=== PATIENT | female | born 1965 | race Caucasian/White ===

== ENCOUNTER → 2023-05-08 | Outpatient (CLI) | payer OTHER ==
--- NOTE | 2023-05-21 13:27 | MM ---
Reason for Exam: Screening (asymptomatic). Last mammogram was performed 1 year(s) and 5 month(s) ago. Patient History: Menarche at age 13. Postmenopausal. 2005, Bilateral Reduction. 1984, Bilateral Reduction. 2008, US breast needle core addl LT - 2 on the Left side. Maternal aunt had breast cancer. Maternal cousin had breast cancer under age 50. Risk Values: Laureen 5 year model risk: 1.1%. NCI Lifetime model risk: 6.6%. Prior Study Comparison: 12/06/2021 Bilateral Screening Mammogram, [facility]. Tissue Density: The breast tissue is heterogeneously dense. This may lower the sensitivity of mammography. Findings: Analyzed By CAD. Pattern appears stable. No significant interval change is evident. Core marker is within the right breast. There are some stable appearing calcifications in the posterior right breast No suspicious groups of microcalcifications, spiculated or lobular masses, architectural distortion or other secondary signs of malignancy are mammographically apparent. Overall Assessment: Benign, BI-RAD 2 Management: Screening Mammogram of both breasts in 1 year. A negative mammogram report should not preclude additional follow up of suspicious palpable abnormalities. Patient should continue monthly self breast exam. A clinical breast exam by your physician is recommended on an annual basis and results should be correlated with mammographic findings. Electronically signed and approved by: Rivas Ontiveros D.O. Radiologis
== END | disposition home or self-care (01) ==
LOC: RADMAMWWP 11:57
PROVIDERS: ATTEND Obstetrics & Gynecology
DX: Z12.31 Encounter for screening mammogram for malignant neoplasm of breast (principal); Z78.0 Asymptomatic menopausal state; Z80.3 Family history of malignant neoplasm of breast
CPT/HCPCS: 77063; 77067

== ENCOUNTER → 2023-05-08 | Outpatient (CLI) | payer OTHER ==
--- NOTE | 2023-05-08 13:34 | CTL ---
EXAMINATION TYPE: CT Low Dose Lung DATE OF EXAM ORDERED: 05/08/2023 HISTORY: . Lung cancer screening CT DLP: 88.[address] CTDI: 2.3 mGy Automated exposure control for dose reduction was used. SCREENING VISIT: COMPARISON: None TECHNIQUE: Low dose computed tomography scan was performed through the chest at 1 mm thick sections a nd reconstructed images in multiple planes at 1 mm and [address] DIAGNOSTIC QUALITY: Satisfactory FINDINGS: There is a 3 mm subpleural nodule right upper lobe axial image 51 There is a right upper lobe nodule axial image 78 measuring millimeters There is a 2 mm subpleural nodule right lower lobe axial image 122. There is a 3 mm left lower lobe archie-fissural nodule on image 93 There are additional areas of groundglass subsegmental consolidation most likely atelectasis The airways are patent. No significant changes of bronchiectasis. No consolidative pneumonia. No pleu ral effusion or pneumothorax. No interstitial edema. Trace pericardial fluid likely physiologic. Aorta normal caliber with mild atherosclerotic changes. T here is no significant coronary artery calcium sedation. Heart is enlarged. Small hiatal hernia. No p athologic adenopathy within the mediastinum or hilum. Hypertrophic and degenerative changes spine and calcification of the right breast is seen is asymmetr ic breast tissue. IMPRESSION: 1. Multiple sub-5 mm pulmonary nodules too small to characterize, but have a benign appearance. 2. Asymmetric right-sided breast tissue recommend follow-up mammogram. CT LUNG RAD AND CT CHEST RECOMMENDATION: Lung-Rad 2 Benign Appearance or Behavior: Continue annual sc reening with LDCT in 12 months.
== END | disposition home or self-care (01) ==
LOC: RADCTMAIN 12:05
PROVIDERS: ATTEND Family Medicine
DX: Z12.2 Encounter for screening for malignant neoplasm of respiratory organs (principal); N64.89 Other specified disorders of breast; R91.8 Other nonspecific abnormal finding of lung field; Z87.891 Personal history of nicotine dependence
CPT/HCPCS: 71271

== ENCOUNTER → 2024-02-06 | Outpatient (CLI) | payer OTHER ==
--- NOTE | 2024-02-06 23:40 | MR ---
EXAMINATION TYPE: MR lumbar spine wo con DATE OF EXAM: 02/06/2024 COMPARISON: NONE HISTORY: Bilateral foot pain. Vertebral genic low back pain. TECHNIQUE: Multiplanar, multisequence imaging of the lumbar spine is performed without IV contrast. FINDINGS: Sagittal images of the lumbar spine show vertebral body heights and alignment to appear sat isfactory. Multilevel disc desiccation with sparing of the L5-S1 level. Moderate to advanced disc bas e narrowing with heterogeneous Modic type II endplate changes at L4-L5 level. Roaf-ig-gvawqdjq disc s pace narrowing at L2-L3 and L3-L4 levels. The conus medullaris is normal in position and signal endin g at mid L1 level. Mild to moderate disc space narrowing with heterogeneous reticular endplate change s anteriorly at T11-T12 level.. Axial images at T12-L1 level shows mild broad-based disc bulge mildly effaces the anterior thecal sac . Patent bilateral neural foramina. Axial images at L1-L2 level appear within normal limits. Axial images at L2-L3 level mild broad disc bulge mildly effaces the anterior thecal sac along with m ild to moderate facet arthropathy and ligamentous flavum hypertrophy effacing the right lateral theca l sac. There is mild bilateral neural foraminal narrowing seen. Axial images at L3-L4 level show spondylolisthesis with mild/moderate facet arthropathy and ligament flavum hypertrophy effacing the posterolateral thecal sac. There is mild to moderate broad disc bulge mildly effacing the anterior thecal sac. There is mild bilateral neural foraminal narrowing seen. Axial images at L4-L5 level show moderate facet arthropathy bilaterally. There is moderate broad disc bulge. There is moderate left greater than right bilateral inferior neural foraminal narrowing. Axial images at L5-S1 level shows mild facet arthropathy bilaterally. Spinal canal is preserved. Bila teral neural foramen are patent. Paraspinal muscle bulk is preserved. IMPRESSION: Multilevel degenerative changes in the lumbar spine as detailed above.
== END | disposition home or self-care (01) ==
LOC: RADMRIMAIN 16:29
PROVIDERS: ATTEND Physical Medicine & Rehabilitation
DX: M47.816 Spondylosis without myelopathy or radiculopathy, lumbar region (principal); M41.26 Other idiopathic scoliosis, lumbar region
CPT/HCPCS: 72148

== ENCOUNTER 2024-04-07 07:00 | Day surgery (SDC) | payer OTHER ==
[~2024-04-07 07:00] MED LIST: LACTATED RINGERS 1,000 ML BAG ONE; LIDOCAINE 1% INJ 10MG/ML (20 ML MDV) ONE; PROPOFOL 10 MG/ML 20 ML VIAL IV ONE
--- NOTE | 2024-04-29 11:45 | P.PCN ---
Date of Procedure: 04/07/24 Procedure(s) Performed: This is an addendum to the procedure that was performed on 04/07/2024 Procedure performed EGD with biopsy and colonoscopy. Procedure. The upper endoscopy was advanced all the way into the duodenum. She was noted to have mild antral gastritis and biopsies were done from the antrum to evaluate for H. pylori infection. Colonoscopy was advanced all the way into the cecum without any difficulty and the patient tolerated the procedure well.
== END 2024-04-07 08:08 | disposition home or self-care (01) ==
LOC: ORWHC2ENDO 07:00
PROVIDERS: ATTEND Internal Medicine Gastroenterology
DX: K29.50 Unspecified chronic gastritis without bleeding (principal); I10 Essential (primary) hypertension; Z79.899 Other long term (current) drug therapy
CPT/HCPCS: 43239; 45378; 88305

== ENCOUNTER → 2024-05-18 | Outpatient (CLI) | payer OTHER ==
--- NOTE | 2024-05-19 23:28 | BD ---
EXAMINATION TYPE: Axial Bone Density DATE OF EXAM: 05/18/2024 CLINICAL HISTORY: 59 years old Female. ICD-10 CODE: M85.89 OTH DISRD OF BONE DENSITY AND STRUCTURE, MU Height: 5 ft 3 in Weight: 189 FRAX RISK QUESTIONS: Alcohol (3 or more units per day): no Family History (Parent hip fracture): no Glucocorticoids (More than 3mos): no (Ex: prednisone, prednisolone, methylprednisolone, dexamethasone, and hydrocortisone). History of Fracture in Adulthood: no Secondary Osteoporosis: 1. Type 1 Diabetes: no 2. Hyperthyroidism: no 3. Menopause before 45: no 4. Malnutrition: no 5. Chronic liver disease: no Rheumatoid Arthritis: no Current Tobacco Use: no RISK FACTORS HISTORY OF: Surgery to Spine/Hip(right/left)/Wrist (right/left): no MEDICATIONS: Thyroid Medications: no Osteoporosis Medications: no EXAM MEASUREMENTS: Bone mineral densitometry was performed using the hurleypalmerflatt System. Bone mineral density as measured about the Lumbar spine is: ----- L1-L4(G/cm2): 1.215 T Score Values are as follows: ----- L1: -0.6 ----- L2: -0.3 ----- L3: 0.7 ----- L4: 0.7 ----- L1-L4: 0.3 Z Score Values are as follows: ----- L1: -0.2 ----- L2: 0.2 ----- L3: 1.2 ----- L4: 1.2 ----- L1-L4: 0.7 baseline Bone mineral density about the R hip (g/cm2): 1.086 Bone mineral density about the L hip (g/cm2): 1.027 T Score values are as follows: -----R Neck: 0.3 -----L Neck: -0.1 -----R Total: 0.3 -----L Total: 0.2 Z Score values are as follows: -----R Neck: 1.1 -----L Neck: 0.7 -----R Total: 0.7 -----L Total: 0.6 baseline FRAX%s: The graph provided illustrates a 5.7 % chance for a major osteoporotic fx and a 0.1 % chance for the hips probability for fx in 10 years time. IMPRESSION: Normal (Values between +1 and -1 indicate normal bone mass). Consider repeating this study in 5 year s or sooner if there is some new clinical indication. NOTE: T-SCORE=SD OF THE YOUNG ADULT MEAN. [facility], , 05/19/2024 11:26 PM
== END | disposition home or self-care (01) ==
LOC: RADBDWWP 07:24
PROVIDERS: ATTEND Internal Medicine
DX: M85.89 Other specified disorders of bone density and structure, multiple sites (principal)
CPT/HCPCS: 77080

== ENCOUNTER → 2024-06-16 | Outpatient (CLI) | payer OTHER ==
--- NOTE | 2024-06-16 11:56 | CT ---
EXAMINATION TYPE: CT chest wo con CT DLP: 264.8 mGycm, Automated exposure control for dose reduction was used. DATE OF EXAM: 06/16/2024 11:10 AM COMPARISON: CT low-dose lung 05/08/2023. CLINICAL INDICATION:Female, 59 years old with history of R91.1 pulmonary nodule; PHH, pulmonary nodul e TECHNIQUE: Multiple axial images were obtained through the chest without IV contrast. Lack of IV or o ral contrast limits evaluation of solid and hollow organ viscera. . Coronal and sagittal reformats re viewed. FINDINGS: LUNGS/ PLEURA: No pleural effusion, pneumothorax, or focal consolidation. Intrafissural lymph node al vicenta the right minor fissure. Stable left lower lobe 4.5 mm nodule along the left major fissure (seri es 4, image 39). Stable pleural-based right upper lobe 2 mm pulmonary nodule (series 4, image 23). No new or enlarging pulmonary nodules. AIRWAY: Patent and unremarkable.. HEART: Size within normal limits. No pericardial effusion. MEDIASTINUM: No gross evidence of adenopathy. VASCULATURE: No aortic aneurysm. MUSCULOSKELETAL: No acute osseous abnormalities. Mild multilevel degenerative disc disease. SOFT TISSUES/LYMPH NODES: Similar asymmetric right breast tissue compared to left. LOWER NECK: No significant findings. UPPER ABDOMEN: No significant findings. IMPRESSION: Stable pulmonary nodules. No new or enlarging pulmonary nodules. Follow-up CT low-dose lung in one ye ar is recommended. [facility], , 06/16/2024 11:53 AM
== END ==
LOC: RADCTMAIN 10:46
PROVIDERS: ATTEND Internal Medicine
CPT/HCPCS: 71250

== ENCOUNTER → 2024-06-16 | Outpatient (CLI) | payer OTHER ==
--- NOTE | 2024-06-16 11:50 | MM ---
Reason for Exam: Screening (asymptomatic). Last mammogram was performed 1 year(s) and 1 month(s) ago. Patient History: Menarche at age 13. Patient has no children. Postmenopausal. 2005, Bilateral Reduction. 1984, Bilateral Reduction. 2008, US breast needle core addl LT - 2 on the Left side. Maternal aunt had breast cancer. Maternal cousin had breast cancer under age 50. Risk Values: Laureen 5 year model risk: 1.8%. NCI Lifetime model risk: 9.8%. Prior Study Comparison: 12/06/2021 Bilateral Screening Mammogram, [facility]. 05/08/2023 Bilateral MG 3D screening mammo w/cad, [facility]. Tissue Density: There are scattered areas of fibroglandular density. Findings: Analyzed By CAD. Right breast biopsy clip. Right breast: There is no suspicious group of microcalcifications or new suspicious mass. Left breast: There is no suspicious group of microcalcifications or new suspicious mass. Overall Assessment: Benign, BI-RAD 2 Management: Screening Mammogram of both breasts in [address] [facility] will attempt to contact patient to return for supplemental views and ultrasound if indicated. Patient should continue monthly self-breast exams. A clinical breast exam by your physician is recommended on an annual basis. This exam should not preclude additional follow-up of suspicious palpable abnormalities. Note on Laureen scores and lifetime risk: 1. A Laureen score greater than 3% is considered moderate risk. If this is the case, consider specialist referral to assess eligibility for a risk reducing agent. 2. If overall lifetime risk for the development of breast cancer is 20% or higher, the patient may qualify for future screening with alternating mammogram and breast MRI. [facility], , 06/16/2024 11:44 AM. Electronically signed and approved by: Gary Smith DO
== END | disposition home or self-care (01) ==
LOC: RADMAMWWP 10:06
PROVIDERS: ATTEND Obstetrics & Gynecology
CPT/HCPCS: 77063; 77067

== ENCOUNTER 2024-07-17 05:34 | Day surgery (SDC) | payer OTHER ==
[2024-07-14 14:19] VITALS: BMI 29.2
[2024-07-17] MEDS ORDERED: SCOPOLAMINE 1 MG/72 HR PATCH TRANSDERM ONE (06:34)
[2024-07-17] MEDS: IV FLUID CONTINUATION 1,000 ML IV ONE (06:45)
[2024-07-17 06:47] LABS: Glucose,Whole Blood 84 mg/dL (70-110)
[2024-07-17] MEDS: ONDANSETRON 4 MG/2 ML VIAL IVP ONE (06:53)
[2024-07-17] MEDS: LACTATED RINGERS 1,000 ML IV SCH (06:53)
[2024-07-17] MEDS: DEXAMETHASONE SOD PHOSPHATE 4 MG/ML 1 ML VIAL IV ONE (06:53)
[2024-07-17] MEDS: MIDAZOLAM 2 MG/2 ML VIAL IV PRN (06:54)
[2024-07-17 06:57] LABS: Basophils # (A) 0.1 k/uL (0-0.2); Basophils % (A) 1 %; Eosinophils # (A) 0.3 k/uL (0-0.7); Eosinophils % (A) 4 %; HCT 38.3 % (34.0-46.0); HGB 12.5 gm/dL (11.4-16.0); Lymphocytes # (A) 2.5 k/uL (1.0-4.8); Lymphocytes % (A) 38 %; MCH 29.3 pg (25.0-35.0); MCHC 32.5 g/dL (31.0-37.0); Mean Platelet Volume 7.3; Monocytes # (A) 0.4 k/uL (0-1.0); Monocytes % (A) 5 %; Neutrophils # (A) 3.4 k/uL (1.3-7.7); Neutrophils % (A) 50 %; Platelet Count 367 k/uL (150-450); RBC 4.26 m/uL (3.80-5.40); RDW 12.4 % (11.5-15.5); WBC 6.7 k/uL (3.8-10.6)
[2024-07-17] MEDS ORDERED: HYDROmorphone 0.5 MG/0.5 ML SYRINGE IVP PRN (07:00)
[2024-07-17] MEDS ORDERED: PROPOFOL 10 MG/ML 20 ML VIAL IV ONE (07:25)
[2024-07-17] MEDS ORDERED: LIDOCAINE 1% INJ 10MG/ML (20 ML MDV) ONE (07:25)
[2024-07-17] MEDS ORDERED: ROPIVACAINE 5 MG/ML 30 ML VIAL ONE (07:25)
[2024-07-17] MEDS ORDERED: MIDAZOLAM 2 MG/2 ML VIAL ONE (07:25)
[2024-07-17] MEDS ORDERED: fentaNYL (PF) 50 MCG/ML 2 ML AMP ONE (07:25)
[2024-07-17] MEDS ORDERED: ePHEDrine 50 MG/ML 1 ML VIAL ONE (07:25)
[2024-07-17] MEDS ORDERED: DEXAMETHASONE SOD PHOSPHATE 4 MG/ML 1 ML VIAL ONE (07:25)
[2024-07-17] MEDS: BUPIVACAINE (PF) 0.25% 30 ML VIAL SQ ONE ×2 (07:43)
[2024-07-17 07:47] LABS: African American GFR (CKD) >90 (>60 ml/min/1.73 sqM); Anion Gap 7 mmol/L; Blood Urea Nitrogen 14 mg/dL (7-17); Calcium 9.3 mg/dL (8.4-10.2); Carbon Dioxide 28 mmol/L (22-30); Chloride 104 mmol/L (98-107); Glucose 87 mg/dL (74-99); Non-African American GFR(CKD) 85 (>60 ml/min/1.73 sqM); Potassium 3.6 mmol/L (3.5-5.1); Sodium 139 mmol/L (137-145)
--- NOTE | 2024-07-17 07:47 | P.ANPRN ---
Procedure Note - Anesthesia - Nerve Block Performed Right Popliteal Single Time Out Performed: Yes Date of Procedure: 07/17/24 Procedure Start Time: 06:54 Procedure Stop Time: 06:59 Location of Patient: PreOp Indication: Acute Post-Operative Pain, Analgesia, Requested by Surgeon Sedation Type: Sedate with meaningful contact maintained Preparation: Sterile Prep Position: Left Lateral Catheter: None Needle Types: Pajunk Needle Gauge: 21 Ultrasound used to visualize needle placement: Yes Ultrasound used to observe medication spread: Yes Injectate: 0.5% Ropivacaine (see comment for volume) ([id number]+Decadron 4mg) Blood Aspirated: No Pain Paresthesia on Injection Noted: No Resistance on Injection: Normal Image Stored and Saved: Yes Events: Uneventful and Well Tolerated
--- NOTE | 2024-07-17 07:48 | P.ANPRN ---
Procedure Note - Anesthesia - Nerve Block Performed Right Adductor Canal Single Time Out Performed: Yes Date of Procedure: 07/17/24 Procedure Start Time: 06:59 Procedure Stop Time: 07:04 Location of Patient: PreOp Indication: Acute Post-Operative Pain, Analgesia, Requested by Surgeon Sedation Type: Sedate with meaningful contact maintained Preparation: Sterile Prep Position: Supine Catheter: None Needle Types: Pajunk Needle Gauge: 21 Ultrasound used to visualize needle placement: Yes Ultrasound used to observe medication spread: Yes Injectate: 0.5% Ropivacaine (see comment for volume) ([id number]) Blood Aspirated: No Pain Paresthesia on Injection Noted: No Resistance on Injection: Normal Image Stored and Saved: Yes Events: Uneventful and Well Tolerated
[2024-07-17 08:51] VITALS: TEMP 97
--- NOTE | 2024-07-17 08:52 | P.OP ---
Date of Procedure: 07/17/24 Preoperative Diagnosis: hallux rigidus right foot Postoperative Diagnosis: same Procedure(s) Performed: first metatarsal phalangeal joint arthrodesis right foot Implants: Arthrex MaxForce plate with associated screws Arthrex allograft Anesthesia: CINDA Surgeon: Shekhar Marcus Estimated Blood Loss (ml): 2 Pathology: none sent Condition: stable Disposition: PACU Description of Procedure: Prior to the patient being brought to the operating room, anesthesia administered a nerve block on the surgical extremity. Then the patient was brought into the operating room and placed on table in the supine position. Timeout was taken to confirm correct patient identifiers, correct laterality of surgery, and correct procedure. Once the staff in the room were in agreement with the timeout, the patient was induced and placed under general anesthesia. A well-padded tourniquet was placed on the ankle and then the foot was prepped and draped in the usual manner. The foot was exsanguinated and the tourniquet inflated to 250 mmHg. Attention was directed over the dorsal aspect of the first metatarsal phalangeal joint, where a linear incision was made between the long extensor tendon and the neurovascular structures. The incision was deepened down to the subcutaneous layer careful to identify, avoid, and retract any neurovascular structures and cauterize any bleeding vessels. Blunt dissection was continued through the subcutaneous layer down to the periosteum and capsule. A linear periosteal and capsular incision was made medial to the long extensor tendon. Those tissues were then sharply reflected off of the first metatarsal head and shaft as well as the base of the proximal phalanx. The soft tissue was released around the joint so that the joint could be mobilized and accessed. A guidewire was placed through the central aspect of the first metatarsal head parallel to the long access and within the medullary canal. Appropriate size reamers were used to shape the first metatarsal head. Then a concave reamer was inserted over the guidewire and used to remove the articular cartilage and subchondral bone. The wire was removed and a 2.0 mm drill was used to aggressively fenestrate the head of the first metatarsal. The guidewire was then inserted at the central aspect of the articular surface of the base of the proximal phalanx. The wire was advanced parallel to the long access and within the medullary canal. The convex reamer was then used to remove the articular cartilage and subchondral bone. The guidewire was removed and a 2.0 mm drill bit was used to fenestrate the surface. The wound was thoroughly irrigated with antibiotic saline. Arthrex Arthrocell was placed between the arthrodesis segments. A 0 bend first metatarsal phalangeal joint fusion plate was then positioned dorsally over the site. Temporary fixation was used to hold the plate in place. Fluoroscopy was used to check the placement of the plate as well as the joint alignment. Once both positions were satisfactory, a combination of locking and nonlocking screws were placed in the distal part of the plate into the proximal phalanx. The position of the joint and plate were checked again under fluoroscopy. Once both were satisfactory, a wire was placed in the base of the proximal phalanx and across the arthrodesis site to maintain the alignment. The offset drill guide was then placed in the compression slot of the plate into drill hole made through the guide. The guide was removed and then the compression device was inserted through the drill hole and engaged with the plate. The compression device was turned to further compress the joint. While holding in compression, another threaded olive wire was used to hold it in place. A drill hole through the proximal compression slot was then made and a nonlocking screw was inserted and tightened until it engaged the plate and provided further compression across the arthrodesis site. A locking screw was then placed in the drill hole in the proximal aspect of the plate closest to the joint line. The final screw was a locking screw placed in the most proximal hole the plate. Final fluoroscopic imaging showed proper placement of all hardware, maintaining correction of the joint, and excellent compression across the arthrodesis site. The temporary fixation wire was removed and the joint thoroughly irrigated with antibiotic saline. The capsule and periosteal tissues were closed with 0 Vicryl. Subcu closure was done with 4-0 Monocryl. And skin closure was done with 4-0 Stratafix in a running subcuticular manner. Dermal glue was placed around the incision, and once dried, Steri-Strips are placed across incision. An Arthrex jumpstart dressing was placed directly over the incision and then a dry sterile dressings applied to the right foot. The tourniquet was released and capillary refill return to all digits on the foot. The patient was then placed in a well- padded, well molded plaster posterior mold/sugar tong splint. The ankle was held in neutral position until the splint was dried. Then anesthesia was reversed and the patient was taken recovery with vital signs stable.
[2024-07-17 09:18] VITALS: RESP 18
[2024-07-17 09:32] VITALS: BP 106/69; PULSE 69
== END 2024-07-17 10:00 | disposition home or self-care (01) ==
LOC: OR 05:34
PROVIDERS: ATTEND Podiatrist
DX: M20.21 Hallux rigidus, right foot (principal); I10 Essential (primary) hypertension; E78.5 Hyperlipidemia, unspecified; K21.9 Gastro-esophageal reflux disease without esophagitis; Z87.891 Personal history of nicotine dependence; Z79.899 Other long term (current) drug therapy
CPT/HCPCS: 80048; 85025; 28750; J2250; J1100; J0690; J2405; J0665; 64445; 64447